=== PATIENT | female | born 1975 | race American Indian/Alaskan Native ===

== ENCOUNTER 2019-04-29 21:53 | Emergency (ER) | payer OTHER ==
[~2019-04-29] VITALS: Ht 162.6 cm; Wt 65.8 kg
[2019-04-29 21:55] VITALS: Ht 162.6 cm; Wt 65.8 kg
[2019-04-29 23:37] VITALS: BP 124/74
== END 2019-04-29 23:37 | disposition home or self-care (01) ==
LOC: ED 21:53
DX: J45.901 Unspecified asthma with (acute) exacerbation (principal); Z98.890 Other specified postprocedural states
CPT/HCPCS: J1885; J2930; J7613; J7644